=== PATIENT | male | born 1990 | race Caucasian/White ===

== ENCOUNTER 2019-10-18 18:56 | Inpatient (IN) | payer BC ==
[~2019-10-18] VITALS: Ht 177.8 cm; Wt 195.2 kg
[~2019-10-18 18:56] MED LIST: FURO40TA4 PO; LEVO25TA4 PO; POTA20TA4 PO; SERT100T PO
--- NOTE | 2019-10-18 19:08 | PHYS DOC ---
Past Medical History Past Medical History: Hypertension Past Medical History severe obesity, lymphedema Past Surgical History Gastric sleeve in November of last year by Dr. Schwartz Smoking Status: Current Every Day Smoker Alcohol Use: None Drug Use: None General Adult EDM: Chief Complaint: CHEST PAIN HPI: HPI: Patient is a 29 year old male who presents for evaluation of epigastric and central chest pain. He states it does radiate to his back. Onset about 40 minutes prior to arrival when he was sitting. Patient took Pepto-Bismol with no improvement of symptoms. At the time the pain started he was having some shortness of air and sweats. Patient has chronic lymphedema. Patient is severely obese and had a gastric sleeve in November of last year. Patient used to weigh over 600 pounds. Review of Systems: Review of Systems: Constitutional: Denies fever or chills. [] Eyes: Denies change in visual acuity. [] HENT: Denies nasal congestion or sore throat. [] Respiratory: Denies cough has mild shortness of breath. [] Cardiovascular: has chest pain and edema. [] GI: upper abdominal pain with nausea, no vomiting, bloody stools or diarrhea. [] : Denies dysuria. [] Musculoskeletal: has upper back pain or joint pain. [] Integument: Denies rash. [] Neurologic: Denies headache, focal weakness or sensory changes. [] Endocrine: Denies polyuria or polydipsia. [] Lymphatic: Denies swollen glands. [] Psychiatric: Denies depression or anxiety. [] Heart Score: Risk Factors: Risk Factors: DM, Current or recent (<one month) smoker, HTN, HLP, family history of CAD, obesity. Risk Scores: Score 0 - 3: 2.5% MACE over next 6 weeks - Discharge Home Score 4 - 6: 20.3% MACE over next 6 weeks - Admit for Clinical Observation Score 7 - 10: 72.7% MACE over next 6 weeks - Early Invasive Strategies Physical Exam: PE: Constitutional: Well developed, well nourished, moderate distress, non-toxic appearance. [] HENT: Normocephalic, atraumatic, bilateral external ears normal, oropharynx mo ist, no oral exudates, nose normal. [] Eyes: PERRL, EOMI, conjunctiva normal, no discharge. [] Neck: Normal range of motion, no tenderness, supple, no stridor. [] Cardiovascular:Heart rate regular rhythm, no murmur [] Lungs & Thorax: Bilateral breath sounds clear to auscultation [] Abdomen: Bowel sounds diminished, soft, no tenderness, no masses, no pulsatile masses. [] Skin: Warm, dry, no erythema, no rash. [] Back: No tenderness, no CVA tenderness. [] Extremities: No tenderness, no cyanosis, no clubbing, ROM intact, chronic significant lymphedema [] Neurologic: Alert and oriented X 3, normal motor function, normal sensory function, no focal deficits noted. [] Psychologic: Affect normal, judgement normal, mood normal. [] Current Patient Data: Labs: Laboratory Tests Test 10/18/19 19:10 10/18/19 21:30 White Blood Count 11.5 x10^3/uL Red Blood Count 4.61 x10^6/uL Hemoglobin 14.2 g/dL Hematocrit 41.5 % Mean Corpuscular Volume 90 fL Mean Corpuscular Hemoglobin 31 pg Mean Corpuscular Hemoglobin Concent 34 g/dL Red Cell Distribution Width 13.2 % Platelet Count 280 x10^3/uL Neutrophils (%) (Auto) 52 % Lymphocytes (%) (Auto) 39 % Monocytes (%) (Auto) 6 % Eosinophils (%) (Auto) 2 % Basophils (%) (Auto) 1 % Neutrophils # (Auto) 6.0 x10^3/uL Lymphocytes # (Auto) 4.5 x10^3/uL Monocytes # (Auto) 0.7 x10^3/uL Eosinophils # (Auto) 0.2 x10^3/uL Basophils # (Auto) 0.1 x10^3/uL Sodium Level 142 mmol/L Potassium Level 4.0 mmol/L Chloride Level 106 mmol/L Carbon Dioxide Level 26 mmol/L Anion Gap 10 Blood Urea Nitrogen 17 mg/dL Creatinine 0.7 mg/dL Estimated GFR (Cockcroft-Gault) 131.5 BUN/Creatinine Ratio 24 Glucose Level 105 mg/dL Calcium Level 9.2 mg/dL Total Bilirubin 0.4 mg/dL Aspartate Amino Transf (AST/SGOT) 28 U/L Alanine Aminotransferase (ALT/SGPT) 29 U/L Alkaline Phosphatase 52 U/L Troponin I Quantitative < 0.017 ng/mL ZG-[id number]-[id number]-Type Natriuretic Peptide 123 pg/mL Total Protein 6.6 g/dL Albumin 3.9 g/dL Albumin/Globulin Ratio 1.4 Lipase 4920 U/L Urine Collection Type Unknown Urine Color Yellow Urine Clarity Clear Urine pH 5.5 Urine Specific [place] >=1.030 Urine Protein Negative mg/dL Urine Glucose (UA) Negative mg/dL Urine Ketones (Stick) Negative mg/dL Urine Blood Negative Urine Nitrite Negative Urine Bilirubin Small Urine Urobilinogen Dipstick 1.0 mg/dL Urine Leukocyte Esterase Negative Urine RBC 0 /HPF Urine WBC 0 /HPF Urine Squamous Epithelial Cells Mod /LPF Urine Bacteria 0 /HPF Urine Mucus Marked /LPF Current Medications Medications (Trade) Dose Ordered Sig/Justina Route PRN Reason Start Time Stop Time Status Last Admin Dose Admin Famotidine (Pepcid Vial) 20 mg 1X ONCE IVP 10/18/19 19:15 10/18/19 19:35 DC 10/18/19 19:15 Iohexol (Omnipaque 300 Mg/ml) 75 ml 1X ONCE IV 10/18/19 20:30 10/18/19 20:31 DC 10/18/19 20:30 Iohexol (Omnipaque 240 Mg/ml) 30 ml 1X ONCE PO 10/18/19 20:30 10/18/19 20:31 DC 10/18/19 20:52 EKG: EKG: Sinus bradycardia rate 48, otherwise unremarkable EKG, not STEMI, read at 1908 [] Radiology/Procedures: Radiology/Procedures: [facility] [address] [place] [address] IMAGING REPORT Signed PATIENT: SILVESTRE MARK ACCOUNT: [id number] : 1990 LOCATION: ER AGE: 29 SEX: M EXAM STATUS: REG ER ORD. PHYSICIAN: AMY CAPELLAN DO REASON: CHEST PAIN, abd pain, hx gastric sleeve, oral and IV contrast please PROCEDURE: CT CHEST ABD PELVIS W/CONTRAST CT scan of the chest, abdomen and pelvis with contrast 10/18/2019 CLINICAL HISTORY: Chest and abdominal pain. TECHNIQUE: After the oral and intravenous administration of contrast, contiguous, 5 mm axial sections were obtained through the chest, abdomen and pelvis. 100 cc of Omnipaque 300 were administered intravenously during this examination. One or more of the following individualized dose reduction techniques were utilized for this study: 1. Automated exposure control. 2. Adjustment of the mA and/or kV according to patient size. 3. Use of iterative reconstruction technique. FINDINGS: Comparison is made to a portable chest radiograph performed earlier today. The heart is borderline enlarged. The thoracic aorta tapers normally. No hilar or mediastinal lymphadenopathy is noted. Minimal dependent subsegmental atelectasis is seen involving both lungs. No area of consolidation is seen. No pneumothorax or pleural effusion is noted. The liver parenchyma has a decreased attenuation consistent with fatty infiltration. The liver is mildly enlarged measuring 21 cm in length. The spleen is mildly enlarged measuring 13.3 cm in length. The pancreas, adrenal glands and kidneys are within normal limits. The abdominal aorta tapers normally. The gallbladder is well-distended. Air and stool are seen throughout the colon. There is no evidence of bowel obstruction. The appendix is well-visualized and is within normal limits. Postsurgical changes are seen involving the stomach. Images through the pelvis demonstrate the urinary bladder distended with urine. Moderate amount stool is seen within the rectum and sigmoid colon. No free fluid is seen. Minimal S-shaped curvature of the thoracolumbar spine is noted. Degenerative changes are seen involving the thoracic and mid and lower lumbar spine along with both hips. IMPRESSION: No acute abnormality is seen. Electronically signed by: Andrew Antoine MD (10/18/2019 9:30 PM) [id number] DICTATED and SIGNED BY: ANDREW ANTOINE MD DATE: 10/18/192129 [] Impression: [facility] [address] [place] [address] IMAGING REPORT Signed PATIENT: SILVESTRE MARK ACCOUNT: [id number] : 1990 LOCATION: ER AGE: 29 SEX: M EXAM STATUS: REG ER ORD. PHYSICIAN: AMY CAPELLAN DO REASON: chest pain PROCEDURE: PORTABLE CHEST 1V EXAM: Chest, single view. HISTORY: Chest pain. COMPARISON: None. FINDINGS: A frontal view of the chest is obtained. There is no infiltrate, pleural effusion or pneumothorax. The heart is normal in size. IMPRESSION: No acute pulmonary finding. Electronically signed by: Iva Meza MD (10/18/2019 7:48 PM) [facility] DICTATED and SIGNED BY: IVA MEZA MD DATE: 10/18/191947 Course & Med Decision Making: Course & Med Decision Making Pertinent Labs and Imaging studies reviewed. (See chart for details) 2019 patient reassessed and pain is better controlled at this time. Patient has a grossly elevated lipase and will require admission to the hospital. In the meantime CT scan chest abdomen pelvis is pending for any other potential acute surgical diagnosis tonight [] Dragon Disclaimer: Dragon Disclaimer: This electronic medical record was generated, in whole or in part, using a voice recognition dictation system. 2204 patient will be admitted for stabilization. The etiology of his pancreatitis is unclear so patient will need further diagnostic testing. CT scan abdomen pelvis was stable and there was no acute findings regarding his gastric sleeve. I am concerned about other etiology causing this condition including gallstone pancreatitis. Patient will be made to the hospital to the hospitalist service. Dr. Coles is now on duty. Morning sonogram ordered and patient is to remain n.p.o. Departure Departure Impression: Primary Impression: Pancreatitis Qualified Codes: K85.00 - Idiopathic acute pancreatitis without necrosis or infection Additional Impression: History of gastric surgery Disposition: ADMITTED INPATIENT Admitting Physician: RACHEL Condition: STABLE Referrals: MAINE RUIZ APRN (PCP) Justicifation of Admission Dx: Justifications for Admission: Justification of Admission Dx: Yes Comments: pancreatitis AMY CAPELLAN DO Oct 18, 2019 19:08
[2019-10-18] MEDS ORDERED: FAMOTIDINE 20 MG/2 ML VIAL IVP ONE (19:15)
[2019-10-18 19:20] LABS: BASO # 0.1 x10^3/uL (0.0-0.2); BASO % 1 % (0-3); EOS # 0.2 x10^3/uL (0.0-0.7); EOS % 2 % (0-3); HEMATOCRIT 41.5 % (39.0-53.0); HEMOGLOBIN 14.2 g/dL (13.0-17.5); LYMPH # 4.5 x10^3/uL (1.0-4.8); LYMPH % 39 % (24-48); MEAN CORPUSCULAR HEMOGLOBIN 31 pg (25-35); MEAN CORPUSCULAR HGB CONC 34 g/dL (31-37); MEAN CORPUSCULAR VOLUME 90 fL (79-100); MONO # 0.7 x10^3/uL (0.0-1.1); MONO % 6 % (0-9); NEUT % 52 % (31-73); PLATELET COUNT 280 x10^3/uL (140-400); RED BLOOD COUNT 4.61 x10^6/uL (4.30-5.70); RED CELL DISTRIBUTION WIDTH 13.2 % (11.5-14.5); WHITE BLOOD COUNT 11.5 x10^3/uL (4.0-11.0)
[2019-10-18 19:29] LABS: CALCIUM 9.2 mg/dL (8.5-10.1); CREATININE 0.7 mg/dL (0.7-1.3); GFR 131.5
[2019-10-18 19:36] LABS: ALBUMIN 3.9 g/dL (3.4-5.0); ALBUMIN/GLOBULIN RATIO 1.4 (1.0-1.7); TOTAL BILIRUBIN 0.4 mg/dL (0.2-1.0); TOTAL PROTEIN 6.6 g/dL (6.4-8.2)
--- NOTE | 2019-10-18 19:51 | RAD ---
EXAM: Chest, single view. HISTORY: Chest pain. COMPARISON: None. FINDINGS: A frontal view of the chest is obtained. There is no infiltrate, pleural effusion or pneumothorax. The heart is normal in size. IMPRESSION: No acute pulmonary finding. Electronically signed by: Corutney Arauz MD (10/18/2019 7:48 PM) [facility]
[2019-10-18] MEDS ORDERED: IOHEXOL 300 MG/ML 100ML VIAL. IV ONE (20:30)
[2019-10-18] MEDS ORDERED: IOHEXOL 240 MG/ML 50ML VIAL. PO ONE (20:30)
--- NOTE | 2019-10-18 21:33 | RAD ---
CT scan of the chest, abdomen and pelvis with contrast 10/18/2019 CLINICAL HISTORY: Chest and abdominal pain. TECHNIQUE: After the oral and intravenous administration of contrast, contiguous, 5 mm axial sections were obtained through the chest, abdomen and pelvis. 100 cc of Omnipaque 300 were administered intravenously during this examination. One or more of the following individualized dose reduction techniques were utilized for this study: 1. Automated exposure control. 2. Adjustment of the mA and/or kV according to patient size. 3. Use of iterative reconstruction technique. FINDINGS: Comparison is made to a portable chest radiograph performed earlier today. The heart is borderline enlarged. The thoracic aorta tapers normally. No hilar or mediastinal lymphadenopathy is noted. Minimal dependent subsegmental atelectasis is seen involving both lungs. No area of consolidation is seen. No pneumothorax or pleural effusion is noted. The liver parenchyma has a decreased attenuation consistent with fatty infiltration. The liver is mildly enlarged measuring 21 cm in length. The spleen is mildly enlarged measuring 13.3 cm in length. The pancreas, adrenal glands and kidneys are within normal limits. The abdominal aorta tapers normally. The gallbladder is well-distended. Air and stool are seen throughout the colon. There is no evidence of bowel obstruction. The appendix is well-visualized and is within normal limits. Postsurgical changes are seen involving the stomach. Images through the pelvis demonstrate the urinary bladder distended with urine. Moderate amount stool is seen within the rectum and sigmoid colon. No free fluid is seen. Minimal S-shaped curvature of the thoracolumbar spine is noted. Degenerative changes are seen involving the thoracic and mid and lower lumbar spine along with both hips. IMPRESSION: No acute abnormality is seen. Electronically signed by: Andrew Antoine MD (10/18/2019 9:30 PM) [id number]
[2019-10-18 21:38] LABS: BILIRUBIN,URINE SMALL (NEG); CLARITY,URINE CLEAR; COLOR,URINE YELLOW; NITRITE,URINE NEGATIVE (NEG); PH,URINE 5.5 (<5.0-8.0); PROTEIN,URINE NEGATIVE (NEG-TRACE)
[2019-10-18 21:48] LABS: SQUAMOUS EPITHELIAL CELL,UR MOD /LPF
[2019-10-18 21:49] LABS: BACTERIA,URINE 0 /HPF (0-FEW); RBC,URINE 0 /HPF (0-2); WBC,URINE 0 /HPF (0-4)
[2019-10-18] MEDS ORDERED: fentaNYL PF VIAL 100 MCG/2 ML VIAL IV PRN (23:00)
[2019-10-18] MEDS ORDERED: ONDANSETRON PF 4 MG/2 ML VIAL. IV PRN (23:00)
[2019-10-18 23:35] VITALS: BP 121/57
[2019-10-19 03:30] VITALS: BP 123/73
[2019-10-19 06:50] VITALS: BP 126/55
--- NOTE | 2019-10-19 07:53 | EKG ---
[facility] [address] [place] [address] Test Date: 2019-10-18 Test Time: 19:01:41 Pat Name: SILVESTRE MARK Department: Room: Gender: M [employer]: : 1990 Requested By: AMY CAPELLAN Order Number: [id number] Reading MD: Measurements Intervals [place] Rate: 48 P: 45 ME: 164 QRS: 46 QRSD: 98 T: 31 QT: 450 QTc: 402 Interpretive Statements SINUS BRADYCARDIA OTHERWISE NORMAL ECG RI6.01 No previous ECG available for comparison
--- NOTE | 2019-10-19 08:59 | NUR ---
SW following. Discussed with RN, pt from home, NPO, room air, bowel rest. SW will continue to follow.
--- NOTE | 2019-10-19 09:01 | PDOC2 ---
CONSULT Date of Consult Date of Consult DATE: 10/19/19 TIME: 08:57 Reason for Consult Reason for Consult: Abdominal pain pancreatitis Referring Physician Referring Physician: Gurwinder Identification/Chief Complaint Chief Complaint Abdominal pain Source Source: Chart review, Patient History of Present Illness Reason for Visit: 29-year-old male status post gastric sleeve procedure for morbid obesity developed severe abdominal epigastric pain last evening which lasted for approximately 2 hours he went to the emergency department to be evaluated CT scan was done which did not really show anything abnormal in his pancreas but is labs showed elevated lipase he was admitted to the hospital this morning he states he is not having any pain no nausea no vomiting states he is never had a problem like this in the past Past Medical History Cardiovascular: No pertinent hx Pulmonary: No pertinent hx GI: No pertinent hx Heme/Onc: No pertinent hx Hepatobiliary: No pertinent hx Psych: No pertinent hx Rheumatologic: No pertinent hx Infectious disease: No pertinent hx ENT: No pertinent hx Endocrine: Diabetes Dermatology: No pertinent hx Past Surgical History Past Surgical History: Other (Gastric sleeve procedure) Family History Family History: No Significant Social History No ALCOHOL: none Drugs: None Current Problem List Problem List Problems Medical Problems: (1) Pancreatitis Status: Acute Current Medications Current Medications Current Medications Famotidine (Pepcid Vial) 20 mg 1X ONCE IVP Last administered on 10/18/19at 19:15; Start 10/18/19 at 19:15; Stop 10/18/19 at 19:35; Status DC Iohexol (Omnipaque 300 Mg/ml) 75 ml 1X ONCE IV Last administered on 10/18/19at 20:30; Start 10/18/19 at 20:30; Stop 10/18/19 at 20:31; Status DC Iohexol (Omnipaque 240 Mg/ml) 30 ml 1X ONCE PO Last administered on 10/18/19at 20:52; Start 10/18/19 at 20:30; Stop 10/18/19 at 20:31; Status DC Ondansetron HCl (Zofran) 4 mg PRN Q8HRS PRN IV NAUSEA/VOMITING 1ST CHOICE; Start 10/18/19 at 23:00; Stop 10/19/19 at 22:59 Fentanyl Citrate (Fentanyl 2ml Vial) 50 mcg PRN Q1HR PRN IV SEVERE PAIN 7-10; Start 10/18/19 at 23:00; Stop 10/19/19 at 22:59 Active Scripts Active Reported Levothyroxine Sodium 25 Mcg Tablet 25 Mcg PO DAILYAC Furosemide 40 Mg Tablet 60 Mg PO DAILY Potassium Chloride 20 Meq Tablet.er 20 Meq PO DAILY Zoloft (Sertraline Hcl) 100 Mg Tablet 100 Mg PO DAILY Allergies Allergies: Coded Allergies: latex (Verified Allergy, Intermediate, 10/19/19) ROS Gastrointestinal: Yes Abdominal Pain Physical Exam General: Alert, Oriented X3, Cooperative, No acute distress HEENT: Atraumatic Lungs: Clear to auscultation, Normal air movement Heart: Regular rate, No murmurs Abdomen: Normal bowel sounds, Soft, No tenderness Extremities: No edema Skin: No significant lesion Neuro: Normal speech Psych/Mental Status: Mental status NL Vitals VITALS Vital Signs Date Time Temp Pulse Resp B/P (MAP) Pulse Ox O2 Delivery O2 Flow Rate FiO2 10/19/19 06:50 97.7 52 18 126/55 (78) 96 Room Air 97.7 Labs Labs Laboratory Tests Test 10/18/19 19:10 10/18/19 21:30 White Blood Count 11.5 x10^3/uL (4.0-11.0) Red Blood Count 4.61 x10^6/uL (4.30-5.70) Hemoglobin 14.2 g/dL (13.0-17.5) Hematocrit 41.5 % (39.0-53.0) Mean Corpuscular Volume 90 fL (79-100) Mean Corpuscular Hemoglobin 31 pg (25-35) Mean Corpuscular Hemoglobin Concent 34 g/dL (31-37) Red Cell Distribution Width 13.2 % (11.5-14.5) Platelet Count 280 x10^3/uL (140-400) Neutrophils (%) (Auto) 52 % (31-73) Lymphocytes (%) (Auto) 39 % (24-48) Monocytes (%) (Auto) 6 % (0-9) Eosinophils (%) (Auto) 2 % (0-3) Basophils (%) (Auto) 1 % (0-3) Neutrophils # (Auto) 6.0 x10^3/uL (1.8-7.7) Lymphocytes # (Auto) 4.5 x10^3/uL (1.0-4.8) Monocytes # (Auto) 0.7 x10^3/uL (0.0-1.1) Eosinophils # (Auto) 0.2 x10^3/uL (0.0-0.7) Basophils # (Auto) 0.1 x10^3/uL (0.0-0.2) Sodium Level 142 mmol/L (136-145) Potassium Level 4.0 mmol/L (3.5-5.1) Chloride Level 106 mmol/L (98-107) Carbon Dioxide Level 26 mmol/L (21-32) Anion Gap 10 (6-14) Blood Urea Nitrogen 17 mg/dL (8-26) Creatinine 0.7 mg/dL (0.7-1.3) Estimated GFR (Cockcroft-Gault) 131.5 BUN/Creatinine Ratio 24 (6-20) Glucose Level 105 mg/dL (70-99) Calcium Level 9.2 mg/dL (8.5-10.1) Total Bilirubin 0.4 mg/dL (0.2-1.0) Aspartate Amino Transf (AST/SGOT) 28 U/L (15-37) Alanine Aminotransferase (ALT/SGPT) 29 U/L (16-63) Alkaline Phosphatase 52 U/L (46-116) Troponin I Quantitative < 0.017 ng/mL (0.000-0.055) DI-Efc-O-Type Natriuretic Peptide 123 pg/mL (0-124) Total Protein 6.6 g/dL (6.4-8.2) Albumin 3.9 g/dL (3.4-5.0) Albumin/Globulin Ratio 1.4 (1.0-1.7) Lipase 4920 U/L (73-393) Urine Collection Type Unknown Urine Color Yellow Urine Clarity Clear Urine pH 5.5 (<5.0-8.0) Urine Specific [place] >=1.030 (1.000-1.030) Urine Protein Negative mg/dL (NEG-TRACE) Urine Glucose (UA) Negative mg/dL (NEG) Urine Ketones (Stick) Negative mg/dL (NEG) Urine Blood Negative (NEG) Urine Nitrite Negative (NEG) Urine Bilirubin Small (NEG) Urine Urobilinogen Dipstick 1.0 mg/dL (0.2 mg/dL) Urine Leukocyte Esterase Negative (NEG) Urine RBC 0 /HPF (0-2) Urine WBC 0 /HPF (0-4) Urine Squamous Epithelial Cells Mod /LPF Urine Bacteria 0 /HPF (0-FEW) Urine Mucus Marked /LPF Laboratory Tests Test 10/18/19 19:10 10/18/19 21:30 White Blood Count 11.5 x10^3/uL (4.0-11.0) Red Blood Count 4.61 x10^6/uL (4.30-5.70) Hemoglobin 14.2 g/dL (13.0-17.5) Hematocrit 41.5 % (39.0-53.0) Mean Corpuscular Volume 90 fL (79-100) Mean Corpuscular Hemoglobin 31 pg (25-35) Mean Corpuscular Hemoglobin Concent 34 g/dL (31-37) Red Cell Distribution Width 13.2 % (11.5-14.5) Platelet Count 280 x10^3/uL (140-400) Neutrophils (%) (Auto) 52 % (31-73) Lymphocytes (%) (Auto) 39 % (24-48) Monocytes (%) (Auto) 6 % (0-9) Eosinophils (%) (Auto) 2 % (0-3) Basophils (%) (Auto) 1 % (0-3) Neutrophils # (Auto) 6.0 x10^3/uL (1.8-7.7) Lymphocytes # (Auto) 4.5 x10^3/uL (1.0-4.8) Monocytes # (Auto) 0.7 x10^3/uL (0.0-1.1) Eosinophils # (Auto) 0.2 x10^3/uL (0.0-0.7) Basophils # (Auto) 0.1 x10^3/uL (0.0-0.2) Sodium Level 142 mmol/L (136-145) Potassium Level 4.0 mmol/L (3.5-5.1) Chloride Level 106 mmol/L (98-107) Carbon Dioxide Level 26 mmol/L (21-32) Anion Gap 10 (6-14) Blood Urea Nitrogen 17 mg/dL (8-26) Creatinine 0.7 mg/dL (0.7-1.3) Estimated GFR (Cockcroft-Gault) 131.5 BUN/Creatinine Ratio 24 (6-20) Glucose Level 105 mg/dL (70-99) Calcium Level 9.2 mg/dL (8.5-10.1) Total Bilirubin 0.4 mg/dL (0.2-1.0) Aspartate Amino Transf (AST/SGOT) 28 U/L (15-37) Alanine Aminotransferase (ALT/SGPT) 29 U/L (16-63) Alkaline Phosphatase 52 U/L (46-116) Troponin I Quantitative < 0.017 ng/mL (0.000-0.055) DQ-Cve-H-Type Natriuretic Peptide 123 pg/mL (0-124) Total Protein 6.6 g/dL (6.4-8.2) Albumin 3.9 g/dL (3.4-5.0) Albumin/Globulin Ratio 1.4 (1.0-1.7) Lipase 4920 U/L (73-393) Urine Collection Type Unknown Urine Color Yellow Urine Clarity Clear Urine pH 5.5 (<5.0-8.0) Urine Specific [place] >=1.030 (1.000-1.030) Urine Protein Negative mg/dL (NEG-TRACE) Urine Glucose (UA) Negative mg/dL (NEG) Urine Ketones (Stick) Negative mg/dL (NEG) Urine Blood Negative (NEG) Urine Nitrite Negative (NEG) Urine Bilirubin Small (NEG) Urine Urobilinogen Dipstick 1.0 mg/dL (0.2 mg/dL) Urine Leukocyte Esterase Negative (NEG) Urine RBC 0 /HPF (0-2) Urine WBC 0 /HPF (0-4) Urine Squamous Epithelial Cells Mod /LPF Urine Bacteria 0 /HPF (0-FEW) Urine Mucus Marked /LPF Images Images CT scan as in the history of present illness Assessment/Plan Assessment/Plan Pancreatitis patient does not take alcohol no use gallstones seen on CT scan possibly related to hypertriglyceridemia would recommend checking his triglycer marcia and cholesterol levels No surgical intervention planned SCOTTY ARGUELLES MD Oct 19, 2019 09:01
--- NOTE | 2019-10-19 09:05 | PDOC2 ---
CONSULT Date of Consult Date of Consult DATE: 10/19/19 TIME: 08:58 Reason for Consult Reason for Consult: pancreatitis Referring Physician Referring Physician: ER Identification/Chief Complaint Chief Complaint abdominal pain Source Source: Chart review, Patient History of Present Illness Reason for Visit: Acute onset of chest pain with radiation to scapula. Seen in ER treated with pepcid, improved and has not returned. No similar symptoms in past. Hx of gastric sleeve and has lost over 200 lbs Past Medical History Cardiovascular: HTN Psych: Depression Endocrine: Hypothyroidism Past Surgical History Past Surgical History: Other (gastric sleeve) Family History Family History: Other (noncontributory to current illness ) Social History No ALCOHOL: none Drugs: None Lives: Alone Current Problem List Problem List Problems Medical Problems: (1) Pancreatitis Status: Acute Current Medications Current Medications Current Medications Famotidine (Pepcid Vial) 20 mg 1X ONCE IVP Last administered on 10/18/19at 19:15; Start 10/18/19 at 19:15; Stop 10/18/19 at 19:35; Status DC Iohexol (Omnipaque 300 Mg/ml) 75 ml 1X ONCE IV Last administered on 10/18/19at 20:30; Start 10/18/19 at 20:30; Stop 10/18/19 at 20:31; Status DC Iohexol (Omnipaque 240 Mg/ml) 30 ml 1X ONCE PO Last administered on 10/18/19at 20:52; Start 10/18/19 at 20:30; Stop 10/18/19 at 20:31; Status DC Ondansetron HCl (Zofran) 4 mg PRN Q8HRS PRN IV NAUSEA/VOMITING 1ST CHOICE; Start 10/18/19 at 23:00; Stop 10/19/19 at 22:59 Fentanyl Citrate (Fentanyl 2ml Vial) 50 mcg PRN Q1HR PRN IV SEVERE PAIN 7-10; Start 10/18/19 at 23:00; Stop 10/19/19 at 22:59 Active Scripts Active Reported Levothyroxine Sodium 25 Mcg Tablet 25 Mcg PO DAILYAC Furosemide 40 Mg Tablet 60 Mg PO DAILY Potassium Chloride 20 Meq Tablet.er 20 Meq PO DAILY Zoloft (Sertraline Hcl) 100 Mg Tablet 100 Mg PO DAILY Allergies Allergies: Coded Allergies: latex (Verified Allergy, Intermediate, 10/19/19) ROS General: YES: Chills, Other (sweats) PSYCHOLOGICAL ROS: No: Anxiety, Depression Eyes: No Blurry vision, No Double vision HEENT: No: Heacaches, Sore Throat Hematological and Lymphatic: No: Bleeding Problems, Blood Clots Respiratory: No: Cough, Shortness of breath Cardiovascular: No Palpitations, No Orthopnea Gastrointestinal: Yes Nausea; No Diarrhea, No Constipation Genitourinary: No Dysuria, No Hematuria Musculoskeletal: No Joint Pain, No Muscle Pain Neurological: No Impaired Coord/balance, No Numbness/Tingling Skin: No Pruritus, No Rash Physical Exam General: Alert, Oriented X3, Cooperative HEENT: Atraumatic, PERRLA Lungs: Clear to auscultation, Normal air movement Heart: Regular rate, Normal S1, Normal S2 Abdomen: Soft, No tenderness, Other (obese abdomen) Extremities: No clubbing, No cyanosis Skin: No rashes, No breakdown Neuro: Normal gait, Normal speech Psych/Mental Status: Mental status NL, Mood NL MUSCULOSKELETAL: No joint tenderness, No deformity Vitals VITALS Vital Signs Date Time Temp Pulse Resp B/P (MAP) Pulse Ox O2 Delivery O2 Flow Rate FiO2 10/19/19 06:50 97.7 52 18 126/55 (78) 96 Room Air 97.7 Labs Labs Laboratory Tests Test 10/18/19 19:10 10/18/19 21:30 White Blood Count 11.5 x10^3/uL (4.0-11.0) Red Blood Count 4.61 x10^6/uL (4.30-5.70) Hemoglobin 14.2 g/dL (13.0-17.5) Hematocrit 41.5 % (39.0-53.0) Mean Corpuscular Volume 90 fL (79-100) Mean Corpuscular Hemoglobin 31 pg (25-35) Mean Corpuscular Hemoglobin Concent 34 g/dL (31-37) Red Cell Distribution Width 13.2 % (11.5-14.5) Platelet Count 280 x10^3/uL (140-400) Neutrophils (%) (Auto) 52 % (31-73) Lymphocytes (%) (Auto) 39 % (24-48) Monocytes (%) (Auto) 6 % (0-9) Eosinophils (%) (Auto) 2 % (0-3) Basophils (%) (Auto) 1 % (0-3) Neutrophils # (Auto) 6.0 x10^3/uL (1.8-7.7) Lymphocytes # (Auto) 4.5 x10^3/uL (1.0-4.8) Monocytes # (Auto) 0.7 x10^3/uL (0.0-1.1) Eosinophils # (Auto) 0.2 x10^3/uL (0.0-0.7) Basophils # (Auto) 0.1 x10^3/uL (0.0-0.2) Sodium Level 142 mmol/L (136-145) Potassium Level 4.0 mmol/L (3.5-5.1) Chloride Level 106 mmol/L (98-107) Carbon Dioxide Level 26 mmol/L (21-32) Anion Gap 10 (6-14) Blood Urea Nitrogen 17 mg/dL (8-26) Creatinine 0.7 mg/dL (0.7-1.3) Estimated GFR (Cockcroft-Gault) 131.5 BUN/Creatinine Ratio 24 (6-20) Glucose Level 105 mg/dL (70-99) Calcium Level 9.2 mg/dL (8.5-10.1) Total Bilirubin 0.4 mg/dL (0.2-1.0) Aspartate Amino Transf (AST/SGOT) 28 U/L (15-37) Alanine Aminotransferase (ALT/SGPT) 29 U/L (16-63) Alkaline Phosphatase 52 U/L (46-116) Troponin I Quantitative < 0.017 ng/mL (0.000-0.055) QW-Evz-I-Type Natriuretic Peptide 123 pg/mL (0-124) Total Protein 6.6 g/dL (6.4-8.2) Albumin 3.9 g/dL (3.4-5.0) Albumin/Globulin Ratio 1.4 (1.0-1.7) Lipase 4920 U/L (73-393) Urine Collection Type Unknown Urine Color Yellow Urine Clarity Clear Urine pH 5.5 (<5.0-8.0) Urine Specific [place] >=1.030 (1.000-1.030) Urine Protein Negative mg/dL (NEG-TRACE) Urine Glucose (UA) Negative mg/dL (NEG) Urine Ketones (Stick) Negative mg/dL (NEG) Urine Blood Negative (NEG) Urine Nitrite Negative (NEG) Urine Bilirubin Small (NEG) Urine Urobilinogen Dipstick 1.0 mg/dL (0.2 mg/dL) Urine Leukocyte Esterase Negative (NEG) Urine RBC 0 /HPF (0-2) Urine WBC 0 /HPF (0-4) Urine Squamous Epithelial Cells Mod /LPF Urine Bacteria 0 /HPF (0-FEW) Urine Mucus Marked /LPF Laboratory Tests Test 10/18/19 19:10 10/18/19 21:30 White Blood Count 11.5 x10^3/uL (4.0-11.0) Red Blood Count 4.61 x10^6/uL (4.30-5.70) Hemoglobin 14.2 g/dL (13.0-17.5) Hematocrit 41.5 % (39.0-53.0) Mean Corpuscular Volume 90 fL (79-100) Mean Corpuscular Hemoglobin 31 pg (25-35) Mean Corpuscular Hemoglobin Concent 34 g/dL (31-37) Red Cell Distribution Width 13.2 % (11.5-14.5) Platelet Count 280 x10^3/uL (140-400) Neutrophils (%) (Auto) 52 % (31-73) Lymphocytes (%) (Auto) 39 % (24-48) Monocytes (%) (Auto) 6 % (0-9) Eosinophils (%) (Auto) 2 % (0-3) Basophils (%) (Auto) 1 % (0-3) Neutrophils # (Auto) 6.0 x10^3/uL (1.8-7.7) Lymphocytes # (Auto) 4.5 x10^3/uL (1.0-4.8) Monocytes # (Auto) 0.7 x10^3/uL (0.0-1.1) Eosinophils # (Auto) 0.2 x10^3/uL (0.0-0.7) Basophils # (Auto) 0.1 x10^3/uL (0.0-0.2) Sodium Level 142 mmol/L (136-145) Potassium Level 4.0 mmol/L (3.5-5.1) Chloride Level 106 mmol/L (98-107) Carbon Dioxide Level 26 mmol/L (21-32) Anion Gap 10 (6-14) Blood Urea Nitrogen 17 mg/dL (8-26) Creatinine 0.7 mg/dL (0.7-1.3) Estimated GFR (Cockcroft-Gault) 131.5 BUN/Creatinine Ratio 24 (6-20) Glucose Level 105 mg/dL (70-99) Calcium Level 9.2 mg/dL (8.5-10.1) Total Bilirubin 0.4 mg/dL (0.2-1.0) Aspartate Amino Transf (AST/SGOT) 28 U/L (15-37) Alanine Aminotransferase (ALT/SGPT) 29 U/L (16-63) Alkaline Phosphatase 52 U/L (46-116) Troponin I Quantitative < 0.017 ng/mL (0.000-0.055) XC-Oxl-V-Type Natriuretic Peptide 123 pg/mL (0-124) Total Protein 6.6 g/dL (6.4-8.2) Albumin 3.9 g/dL (3.4-5.0) Albumin/Globulin Ratio 1.4 (1.0-1.7) Lipase 4920 U/L (73-393) Urine Collection Type Unknown Urine Color Yellow Urine Clarity Clear Urine pH 5.5 (<5.0-8.0) Urine Specific [place] >=1.030 (1.000-1.030) Urine Protein Negative mg/dL (NEG-TRACE) Urine Glucose (UA) Negative mg/dL (NEG) Urine Ketones (Stick) Negative mg/dL (NEG) Urine Blood Negative (NEG) Urine Nitrite Negative (NEG) Urine Bilirubin Small (NEG) Urine Urobilinogen Dipstick 1.0 mg/dL (0.2 mg/dL) Urine Leukocyte Esterase Negative (NEG) Urine RBC 0 /HPF (0-2) Urine WBC 0 /HPF (0-4) Urine Squamous Epithelial Cells Mod /LPF Urine Bacteria 0 /HPF (0-FEW) Urine Mucus Marked /LPF Assessment/Plan Assessment/Plan pancreatitis US pending check triglycerides Obesity BMI 59.7 bowel rest, hydration, allow resolution of pancreatitis imaging with cholelithiasis--would rec FU with Dr Leach that performed his sleeve for lap ramona once pancreatitis resolved triglycerides normal MONICA CORDOVA DIRECTOR OF SURGERY Oct 19, 2019 09:05
--- NOTE | 2019-10-19 09:59 | RAD ---
ABDOMEN LTD INDICATION: Reason: PANCREATITIS / Spl. Instructions: / History: COMPARISON: CT 10/18/2019. TECHNIQUE: Limited transverse and longitudinal grayscale images of the right upper quadrant with color and pulsed doppler utilized as appropriate. FINDINGS: The liver demonstrates increased echogenicity without focal lesions. The liver measures 19.7 cm. The portal vein is patent with normal antegrade flow. Cholelithiasis. No wall thickening or pericholecystic fluid. Negative sonographic Trevino's sign. No intrahepatic or extrahepatic biliary dilatation. The common bile duct measures 0.4 cm. Tail of the pancreas is obscured. The visualized portions of the pancreas demonstrate normal echogenicity without focal lesions. The right kidney has normal echogenicity and measures 10.7 cm. No hydronephrosis, shadowing stones or suspicious masses seen. No ascites or fluid collections. The aorta and IVC are normal diameter where visualized. IMPRESSION: 1. Cholelithiasis. No evidence of acute cholecystitis. Normal caliber common bile duct. 2. Hepatomegaly and hepatic steatosis. Electronically signed by: Cade Godoy MD (10/19/2019 9:56 AM) [id number]
--- NOTE | 2019-10-19 10:29 | PDOC1 ---
History and Physical Date of Admission Date of Admission DATE: 10/19/19 TIME: 10:28 Identification/Chief Complaint Chief Complaint SEEN IN ER WITH ABD PAIN, ACUTE PANCREATITIS 29 year old male who presents for evaluation of epigastric and central chest pain. He states it does radiate to his back. Onset about 40 minutes prior to arrival when he was sitting. Patient took Pepto-Bismol with no improvement of symptoms. At the time the pain started he was having some shortness of air and sweats. Patient has chronic lymphedema. Patient is severely obese and had a gastric sleeve in November of last year. Patient used to weigh over 600 pounds. Past Medical History Past Medical History Past Medical History Past Medical History Past Medical History: Hypertension Past Medical History severe obesity, lymphedema Past Surgical History Gastric sleeve in November of last year by Dr. Schwartz Smoking Status: Current Every Day Smoker Alcohol Use: None Drug Use: None fhx copd Cardiovascular: HTN Pulmonary: No pertinent hx GI: No pertinent hx Heme/Onc: No pertinent hx Hepatobiliary: No pertinent hx Psych: Depression Rheumatologic: No pertinent hx Infectious disease: No pertinent hx ENT: No pertinent hx Endocrine: Hypothyroidism Dermatology: No pertinent hx Past Surgical History Past Surgical History: Other (gastric sleeve) Family History Family History: High Cholestrol, Hypertension, Other (noncontributory to current illness ) Social History Smoke: <1 pack per day ALCOHOL: none Drugs: None Current Problem List Problem List Problems Medical Problems: (1) Pancreatitis Status: Acute Current Medications Current Medications Current Medications Famotidine (Pepcid Vial) 20 mg 1X ONCE IVP Last administered on 10/18/19at 19:15; Start 10/18/19 at 19:15; Stop 10/18/19 at 19:35; Status DC Iohexol (Omnipaque 300 Mg/ml) 75 ml 1X ONCE IV Last administered on 10/18/19at 20:30; Start 10/18/19 at 20:30; Stop 10/18/19 at 20:31; Status DC Iohexol (Omnipaque 240 Mg/ml) 30 ml 1X ONCE PO Last administered on 10/18/19at 20:52; Start 10/18/19 at 20:30; Stop 10/18/19 at 20:31; Status DC Ondansetron HCl (Zofran) 4 mg PRN Q8HRS PRN IV NAUSEA/VOMITING 1ST CHOICE; Start 10/18/19 at 23:00; Stop 10/19/19 at 22:59 Fentanyl Citrate (Fentanyl 2ml Vial) 50 mcg PRN Q1HR PRN IV SEVERE PAIN 7-10; Start 10/18/19 at 23:00; Stop 10/19/19 at 22:59 Sodium Chloride 1,000 ml @ 75 mls/hr [id number] IV ; Start 10/19/19 at 10:15 Active Scripts Active Reported Levothyroxine Sodium 25 Mcg Tablet 25 Mcg PO DAILYAC Furosemide 40 Mg Tablet 60 Mg PO DAILY Potassium Chloride 20 Meq Tablet.er 20 Meq PO DAILY Zoloft (Sertraline Hcl) 100 Mg Tablet 100 Mg PO DAILY Allergies Allergies: Coded Allergies: latex (Verified Allergy, Intermediate, 10/19/19) ROS Review of System Constitutional: Denies fever or chills. [] Eyes: Denies change in visual acuity. [] HENT: Denies nasal congestion or sore throat. [] Respiratory: Denies cough has mild shortness of breath. [] Cardiovascular: has chest pain and edema. [] GI: upper abdominal pain with nausea, no vomiting, bloody stools or diarrhea. [] : Denies dysuria. [] Musculoskeletal: has upper back pain or joint pain. [] Integument: Denies rash. [] Neurologic: Denies headache, focal weakness or sensory changes. [] Endocrine: Denies polyuria or polydipsia. [] Lymphatic: Denies swollen glands. [] Psychiatric: Denies depression or anxiety. [] 14 PT ROS OTHERWISE NEG PSYCHOLOGICAL ROS: No: Anxiety, Behavioral Disorder, Concentration difficultie, Decreased libido, Depression, Disorientation, Hallucinations, Hostility, Irritablity, Memory difficulties, Mood Swings, Obsessive thoughts, Physical abuse, Sexual abuse, Sleep disturbances, Suicidal ideation, Other HEENT: No: Heacaches, Visual Changes, Hearing change, Nasal congestion, Nasal discharge, Oral lesions, Sinus pain, Sore Throat, Epistaxis, Sneezing, Snoring, Tinnitus, Vertigo, Vocal changes, Other Hematological and Lymphatic: No: Bleeding Problems, Blood Clots, Blood T ransfusions, Brusing, Night Sweats, Pallor, Swollen Lymph Nodes, Other Cardiovascular: No Chest Pain, No Palpitations, No Orthopnea, No Paroxysmal Noc. Dyspnea, No Edema, No Lt Headedness, No Other Gastrointestinal: Yes Nausea, Yes Abdominal Pain, Yes Other (PAIN NOW RESOLVED) Musculoskeletal: No Gait Disturbance, No Joint Pain, No Joint Stiffness, No Joint Swelling, No Muscle Pain, No Muscular Weakness, No Pain In:, No Swelling In:, No Other Physical Exam Physical Exam Constitutional: Well developed, well nourished, NO distress, non-toxic appearance. [] HENT: Normocephalic, atraumatic, bilateral external ears normal, oropharynx moist, no oral exudates, nose normal. [] Eyes: PERRL, EOMI, conjunctiva normal, no discharge. [] Neck: Normal range of motion, no tenderness, supple, no stridor. [] Cardiovascular:Heart rate regular rhythm, no murmur [] Lungs & Thorax: Bilateral breath sounds clear to auscultation [] Abdomen: Bowel sounds diminished, soft, no tenderness, no masses, no pulsatile masses. [] Skin: Warm, dry, no erythema, no rash. [] Back: No tenderness, no CVA tenderness. [] Extremities: No tenderness, no cyanosis, no clubbing, ROM intact, chronic significant lymphedema [] Neurologic: Alert and oriented X 3, normal motor function, normal sensory fu nction, no focal deficits noted. [] Psychologic: Affect normal, judgment normal, mood normal. [] General: Alert, Oriented X3, Cooperative, No acute distress HEENT: Atraumatic, EOMI, Mucous membr. moist/pink Lungs: Clear to auscultation, Normal air movement Heart: RRR, no gallops, no murmurs Breasts: Not examined Abdomen: Soft Rectal Exam: not examined PELVIC: Examination not indicated Extremities: No cyanosis, Other (LYPHPHEDEMA ) Neuro: Normal speech, Cranial nerves 3-12 NL Psych/Mental Status: Mental status NL, Mood NL Vitals Vitals Vital Signs Date Time Temp Pulse Resp B/P (MAP) Pulse Ox O2 Delivery O2 Flow Rate FiO2 10/19/19 08:00 Room Air 10/19/19 06:50 97.7 52 18 126/55 (78) 96 97.7 Labs Labs Laboratory Tests Test 10/18/19 19:10 10/18/19 21:30 10/19/19 09:20 White Blood Count 11.5 x10^3/uL (4.0-11.0) Red Blood Count 4.61 x10^6/uL (4.30-5.70) Hemoglobin 14.2 g/dL (13.0-17.5) Hematocrit 41.5 % (39.0-53.0) Mean Corpuscular Volume 90 fL (79-100) Mean Corpuscular Hemoglobin 31 pg (25-35) Mean Corpuscular Hemoglobin Concent 34 g/dL (31-37) Red Cell Distribution Width 13.2 % (11.5-14.5) Platelet Count 280 x10^3/uL (140-400) Neutrophils (%) (Auto) 52 % (31-73) Lymphocytes (%) (Auto) 39 % (24-48) Monocytes (%) (Auto) 6 % (0-9) Eosinophils (%) (Auto) 2 % (0-3) Basophils (%) (Auto) 1 % (0-3) Neutrophils # (Auto) 6.0 x10^3/uL (1.8-7.7) Lymphocytes # (Auto) 4.5 x10^3/uL (1.0-4.8) Monocytes # (Auto) 0.7 x10^3/uL (0.0-1.1) Eosinophils # (Auto) 0.2 x10^3/uL (0.0-0.7) Basophils # (Auto) 0.1 x10^3/uL (0.0-0.2) Sodium Level 142 mmol/L (136-145) Potassium Level 4.0 mmol/L (3.5-5.1) Chloride Level 106 mmol/L (98-107) Carbon Dioxide Level 26 mmol/L (21-32) Anion Gap 10 (6-14) Blood Urea Nitrogen 17 mg/dL (8-26) Creatinine 0.7 mg/dL (0.7-1.3) Estimated GFR (Cockcroft-Gault) 131.5 BUN/Creatinine Ratio 24 (6-20) Glucose Level 105 mg/dL (70-99) Calcium Level 9.2 mg/dL (8.5-10.1) Total Bilirubin 0.4 mg/dL (0.2-1.0) Aspartate Amino Transf (AST/SGOT) 28 U/L (15-37) Alanine Aminotransferase (ALT/SGPT) 29 U/L (16-63) Alkaline Phosphatase 52 U/L (46-116) Troponin I Quantitative < 0.017 ng/mL (0.000-0.055) FN-Qlt-M-Type Natriuretic Peptide 123 pg/mL (0-124) Total Protein 6.6 g/dL (6.4-8.2) Albumin 3.9 g/dL (3.4-5.0) Albumin/Globulin Ratio 1.4 (1.0-1.7) Lipase 4920 U/L (73-393) Urine Collection Type Unknown Urine Color Yellow Urine Clarity Clear Urine pH 5.5 (<5.0-8.0) Urine Specific [place] >=1.030 (1.000-1.030) Urine Protein Negative mg/dL (NEG-TRACE) Urine Glucose (UA) Negative mg/dL (NEG) Urine Ketones (Stick) Negative mg/dL (NEG) Urine Blood Negative (NEG) Urine Nitrite Negative (NEG) Urine Bilirubin Small (NEG) Urine Urobilinogen Dipstick 1.0 mg/dL (0.2 mg/dL) Urine Leukocyte Esterase Negative (NEG) Urine RBC 0 /HPF (0-2) Urine WBC 0 /HPF (0-4) Urine Squamous Epithelial Cells Mod /LPF Urine Bacteria 0 /HPF (0-FEW) Urine Mucus Marked /LPF Triglycerides Level 78 mg/dL (0-150) Laboratory Tests Test 10/18/19 19:10 10/18/19 21:30 10/19/19 09:20 White Blood Count 11.5 x10^3/uL (4.0-11.0) Red Blood Count 4.61 x10^6/uL (4.30-5.70) Hemoglobin 14.2 g/dL (13.0-17.5) Hematocrit 41.5 % (39.0-53.0) Mean Corpuscular Volume 90 fL (79-100) Mean Corpuscular Hemoglobin 31 pg (25-35) Mean Corpuscular Hemoglobin Concent 34 g/dL (31-37) Red Cell Distribution Width 13.2 % (11.5-14.5) Platelet Count 280 x10^3/uL (140-400) Neutrophils (%) (Auto) 52 % (31-73) Lymphocytes (%) (Auto) 39 % (24-48) Monocytes (%) (Auto) 6 % (0-9) Eosinophils (%) (Auto) 2 % (0-3) Basophils (%) (Auto) 1 % (0-3) Neutrophils # (Auto) 6.0 x10^3/uL (1.8-7.7) Lymphocytes # (Auto) 4.5 x10^3/uL (1.0-4.8) Monocytes # (Auto) 0.7 x10^3/uL (0.0-1.1) Eosinophils # (Auto) 0.2 x10^3/uL (0.0-0.7) Basophils # (Auto) 0.1 x10^3/uL (0.0-0.2) Sodium Level 142 mmol/L (136-145) Potassium Level 4.0 mmol/L (3.5-5.1) Chloride Level 106 mmol/L (98-107) Carbon Dioxide Level 26 mmol/L (21-32) Anion Gap 10 (6-14) Blood Urea Nitrogen 17 mg/dL (8-26) Creatinine 0.7 mg/dL (0.7-1.3) Estimated GFR (Cockcroft-Gault) 131.5 BUN/Creatinine Ratio 24 (6-20) Glucose Level 105 mg/dL (70-99) Calcium Level 9.2 mg/dL (8.5-10.1) Total Bilirubin 0.4 mg/dL (0.2-1.0) Aspartate Amino Transf (AST/SGOT) 28 U/L (15-37) Alanine Aminotransferase (ALT/SGPT) 29 U/L (16-63) Alkaline Phosphatase 52 U/L (46-116) Troponin I Quantitative < 0.017 ng/mL (0.000-0.055) DB-Ozb-V-Type Natriuretic Peptide 123 pg/mL (0-124) Total Protein 6.6 g/dL (6.4-8.2) Albumin 3.9 g/dL (3.4-5.0) Albumin/Globulin Ratio 1.4 (1.0-1.7) Lipase 4920 U/L (73-393) Urine Collection Type Unknown Urine Color Yellow Urine Clarity Clear Urine pH 5.5 (<5.0-8.0) Urine Specific [place] >=1.030 (1.000-1.030) Urine Protein Negative mg/dL (NEG-TRACE) Urine Glucose (UA) Negative mg/dL (NEG) Urine Ketones (Stick) Negative mg/dL (NEG) Urine Blood Negative (NEG) Urine Nitrite Negative (NEG) Urine Bilirubin Small (NEG) Urine Urobilinogen Dipstick 1.0 mg/dL (0.2 mg/dL) Urine Leukocyte Esterase Negative (NEG) Urine RBC 0 /HPF (0-2) Urine WBC 0 /HPF (0-4) Urine Squamous Epithelial Cells Mod /LPF Urine Bacteria 0 /HPF (0-FEW) Urine Mucus Marked /LPF Triglycerides Level 78 mg/dL (0-150) Images Images ABDOMEN LTD INDICATION: Reason: PANCREATITIS / Spl. Instructions: / History: COMPARISON: CT 10/18/2019. TECHNIQUE: Limited transverse and longitudinal grayscale images of the right upper quadrant with color and pulsed doppler utilized as appropriate. FINDINGS: The liver demonstrates increased echogenicity without focal lesions. The liver measures 19.7 cm. The portal vein is patent with normal antegrade flow. Cholelithiasis. No wall thickening or pericholecystic fluid. Negative sonographic Trevino's sign. No intrahepatic or extrahepatic biliary dilatation. The common bile duct measures 0.4 cm. Tail of the pancreas is obscured. The visualized portions of the pancreas demonstrate normal echogenicity without focal lesions. The right kidney has normal echogenicity and measures 10.7 cm. No hydronephrosis, shadowing stones or suspicious masses seen. No ascites or fluid collections. The aorta and IVC are normal diameter where visualized. IMPRESSION: 1. Cholelithiasis. No evidence of acute cholecystitis. Normal caliber common bile duct. 2. Hepatomegaly and hepatic steatosis. Electronically signed by: Libby Godoy MD (10/19/2019 9:56 AM) [id number] DICTATED and SIGNED BY: LIBBY GODOY MD CT scan of the chest, abdomen and pelvis with contrast 10/18/2019 CLINICAL HISTORY: Chest and abdominal pain. TECHNIQUE: After the oral and intravenous administration of contrast, contiguous, 5 mm axial sections were obtained through the chest, abdomen and pelvis. 100 cc of Omnipaque 300 were administered intravenously during this examination. One or more of the following individualized dose reduction techniques were utilized for this study: 1. Automated exposure control. 2. Adjustment of the mA and/or kV according to patient size. 3. Use of iterative reconstruction technique. FINDINGS: Comparison is made to a portable chest radiograph performed earlier today. The heart is borderline enlarged. The thoracic aorta tapers normally. No hilar or mediastinal lymphadenopathy is noted. Minimal dependent subsegmental atelectasis is seen involving both lungs. No area of consolidation is seen. No pneumothorax or pleural effusion is noted. The liver parenchyma has a decreased attenuation consistent with fatty infiltration. The liver is mildly enlarged measuring 21 cm in length. The spleen is mildly enlarged measuring 13.3 cm in length. The pancreas, adrenal glands and kidneys are within normal limits. The abdominal aorta tapers normally. The gallbladder is well-distended. Air and stool are seen throughout the colon. There is no evidence of bowel obstruction. The appendix is well-visualized and is within normal limits. Postsurgical changes are seen involving the stomach. Images through the pelvis demonstrate the urinary bladder distended with urine. Moderate amount stool is seen within the rectum and sigmoid colon. No free fluid is seen. Minimal S-shaped curvature of the thoracolumbar spine is noted. Degenerative changes are seen involving the thoracic and mid and lower lumbar spine along with both hips. IMPRESSION: No acute abnormality is seen. Electronically signed by: Andrew Antoine MD (10/18/2019 9:30 PM) [id number] DICTATED and SIGNED BY: ANDREW ANTOINE MD DATE: 10/18/192129 VTE Prophylaxis Ordered VTE Prophylaxis Devices: No VTE Pharmacological Prophylaxi: Yes Assessment/Plan Assessment/Plan IMPRESSION ABDOMINAL PAIN Pancreatitis //no alcohol ABUSE HX pancreatitis possibly related to hypertriglyceridemia /// triglyceride and cholesterol levels Cholelithiasis. No evidence of acute cholecystitis. Normal caliber common bile duct. Hepatomegaly and hepatic steatosis. SUPERMORBID OBESITY POST BARIATRIC SURGERY [facility] 2019 plan ADMIT GI CONSULT NPO IV FLUID SUPPORT GEN SURGERY CONSULT Note surgery recs for f/u w/ bariatric surgeon re: cholecystectomy. FLP DVT PROPHYLAXIS D/W RN AND MOTHER IN ROOM Justicifation of Admission Dx: Justifications for Admission: Justification of Admission Dx: Yes Comments: INTRACTABLE VOMITING, PAIN SCOTTY MAI MD Oct 19, 2019 10:29
[2019-10-19 10:30] VITALS: BP 114/50
[2019-10-19] MEDS: IV NORMAL SALINE 1000ML BAG 1,000 ML IV SCH ×2 (10:30→23:05)
--- NOTE | 2019-10-19 12:01 | PDOC2 ---
GI CONSULT Reason For Consult: acute pancreatitis HPI: HPI: 29 y/o male admitted through ER. Acute onset of lower chest and epigastric pain w/ radiation to back yesterday afternoon. [place] like gas. Associated w/ sweating. Took Pepto-Bismol and came to ER. Tells me pain resolved before he was given any treatment here. Continues w/o pain. Denies reflux/heartburn, dysphagia, n/v, diarrhea, constipation, hematochezia, or melena. S/p gastric sleeve in 11/2018. Has lost 240-260 pounds. Eats 4-6 oz at a time - more than that and he feels food backing up in his throat. No previous colonoscopy. No GB, liver, pancreas, or PUD history. No NSAIDs. PMH: PMH: lymphedema, depression tonsillectomy, gastric sleeve FH: Family History: Other (mother - cholecystectomy after weight loss) Social History: Smoke: No ALCOHOL: rare (maybe 5 drinks a year) Drugs: None ROS: GEN: +sweats (resolved) HEENT: Denies blurred vision, sore throat CV: +chest pain (resolved) RESP: Denies shortness of air, cough GI: Per HPI : Denies hematuria, dysuria ENDO: +weight loss (gastric sleeve) NEURO: Denies confusion, dizziness MSK: +lymphedema +back pain (resolved) SKIN: Denies jaundice, pruritus Vitals: Vitals: Vital Signs Date Time Temp Pulse Resp B/P (MAP) Pulse Ox O2 Delivery O2 Flow Rate FiO2 10/19/19 10:30 97.8 51 18 114/50 (71) 96 Room Air 97.8 Labs: Labs: Laboratory Tests Test 10/18/19 19:10 10/18/19 21:30 10/19/19 09:20 White Blood Count 11.5 x10^3/uL (4.0-11.0) Red Blood Count 4.61 x10^6/uL (4.30-5.70) Hemoglobin 14.2 g/dL (13.0-17.5) Hematocrit 41.5 % (39.0-53.0) Mean Corpuscular Volume 90 fL (79-100) Mean Corpuscular Hemoglobin 31 pg (25-35) Mean Corpuscular Hemoglobin Concent 34 g/dL (31-37) Red Cell Distribution Width 13.2 % (11.5-14.5) Platelet Count 280 x10^3/uL (140-400) Neutrophils (%) (Auto) 52 % (31-73) Lymphocytes (%) (Auto) 39 % (24-48) Monocytes (%) (Auto) 6 % (0-9) Eosinophils (%) (Auto) 2 % (0-3) Basophils (%) (Auto) 1 % (0-3) Neutrophils # (Auto) 6.0 x10^3/uL (1.8-7.7) Lymphocytes # (Auto) 4.5 x10^3/uL (1.0-4.8) Monocytes # (Auto) 0.7 x10^3/uL (0.0-1.1) Eosinophils # (Auto) 0.2 x10^3/uL (0.0-0.7) Basophils # (Auto) 0.1 x10^3/uL (0.0-0.2) Sodium Level 142 mmol/L (136-145) Potassium Level 4.0 mmol/L (3.5-5.1) Chloride Level 106 mmol/L (98-107) Carbon Dioxide Level 26 mmol/L (21-32) Anion Gap 10 (6-14) Blood Urea Nitrogen 17 mg/dL (8-26) Creatinine 0.7 mg/dL (0.7-1.3) Estimated GFR (Cockcroft-Gault) 131.5 BUN/Creatinine Ratio 24 (6-20) Glucose Level 105 mg/dL (70-99) Calcium Level 9.2 mg/dL (8.5-10.1) Total Bilirubin 0.4 mg/dL (0.2-1.0) Aspartate Amino Transf (AST/SGOT) 28 U/L (15-37) Alanine Aminotransferase (ALT/SGPT) 29 U/L (16-63) Alkaline Phosphatase 52 U/L (46-116) Troponin I Quantitative < 0.017 ng/mL (0.000-0.055) TZ-[id number]-Type Natriuretic Peptide 123 pg/mL (0-124) Total Protein 6.6 g/dL (6.4-8.2) Albumin 3.9 g/dL (3.4-5.0) Albumin/Globulin Ratio 1.4 (1.0-1.7) Lipase 4920 U/L (73-393) Urine Collection Type Unknown Urine Color Yellow Urine Clarity Clear Urine pH 5.5 (<5.0-8.0) Urine Specific [place] >=1.030 (1.000-1.030) Urine Protein Negative mg/dL (NEG-TRACE) Urine Glucose (UA) Negative mg/dL (NEG) Urine Ketones (Stick) Negative mg/dL (NEG) Urine Blood Negative (NEG) Urine Nitrite Negative (NEG) Urine Bilirubin Small (NEG) Urine Urobilinogen Dipstick 1.0 mg/dL (0.2 mg/dL) Urine Leukocyte Esterase Negative (NEG) Urine RBC 0 /HPF (0-2) Urine WBC 0 /HPF (0-4) Urine Squamous Epithelial Cells Mod /LPF Urine Bacteria 0 /HPF (0-FEW) Urine Mucus Marked /LPF Triglycerides Level 78 mg/dL (0-150) Allergies: Coded Allergies: latex (Verified Allergy, Intermediate, 10/19/19) Medications: Current Medications Medications (Trade) Dose Ordered Sig/Justina Route PRN Reason Start Time Stop Time Status Last Admin Dose Admin Famotidine (Pepcid Vial) 20 mg 1X ONCE IVP 10/18/19 19:15 10/18/19 19:35 DC 10/18/19 19:15 Iohexol (Omnipaque 300 Mg/ml) 75 ml 1X ONCE IV 10/18/19 20:30 10/18/19 20:31 DC 10/18/19 20:30 Iohexol (Omnipaque 240 Mg/ml) 30 ml 1X ONCE PO 10/18/19 20:30 10/18/19 20:31 DC 10/18/19 20:52 Sodium Chloride 1,000 ml @ 75 mls/hr [id number] IV 10/19/19 10:15 10/19/19 10:30 Imaging: Imaging: CXR IMPRESSION: No acute pulmonary finding. C/A/P CT IMPRESSION: No acute abnormality is seen. Abd US IMPRESSION: 1. Cholelithiasis. No evidence of acute cholecystitis. Normal caliber common bile duct. 2. Hepatomegaly and hepatic steatosis. PE: GEN: NAD HEENT: Atraumatic, PERRL LUNGS: CTAB HEART: RR distant ABD: quiet BS, S/NT, obese EXTREMITY: BLE lymphedema SKIN: No rashes, no jaundice NEURO/PSYCH: A & O 3 A/P: A/P: Pancreatitis - lipase elevated w/ normal pancreas on CT, cholelithiasis noted on US, normal triglycerides S/p gastric sleeve - has lost ~250 pounds since 11/2018, BMI 59.7 CRC screen - average risk -- Pain resolved. Okay to try clears. Note surgery recs for f/u w/ bariatric surgeon re: cholecystectomy. He'd like to be home by Father's Day - DC per primary when reliably eating. NILE MELENDREZ Oct 19, 2019 12:01
[2019-10-19 14:49] VITALS: BP 124/38
[2019-10-19 19:00] VITALS: BP 123/55
[2019-10-19 23:01] VITALS: BP 116/52
[2019-10-20 04:17] VITALS: BP 129/66
[2019-10-20 07:26] VITALS: BP 106/45
[2019-10-20 07:32] LABS: BASO % 1 % (0-3); EOS # 0.2 x10^3/uL (0.0-0.7); EOS % 3 % (0-3); HEMATOCRIT 37.9 % (39.0-53.0); HEMOGLOBIN 12.7 g/dL (13.0-17.5); LYMPH # 2.7 x10^3/uL (1.0-4.8); LYMPH % 36 % (24-48); MEAN CORPUSCULAR HEMOGLOBIN 30 pg (25-35); MEAN CORPUSCULAR HGB CONC 33 g/dL (31-37); MEAN CORPUSCULAR VOLUME 90 fL (79-100); MONO # 0.5 x10^3/uL (0.0-1.1); MONO % 6 % (0-9); NEUT # 3.9 x10^3/uL (1.8-7.7); NEUT % 53 % (31-73); PLATELET COUNT 225 x10^3/uL (140-400); RED BLOOD COUNT 4.19 x10^6/uL (4.30-5.70); WHITE BLOOD COUNT 7.3 x10^3/uL (4.0-11.0)
[2019-10-20 07:55] LABS: ALBUMIN 3.2 g/dL (3.4-5.0); ALBUMIN/GLOBULIN RATIO 1.2 (1.0-1.7); CALCIUM 8.1 mg/dL (8.5-10.1); CREATININE 0.7 mg/dL (0.7-1.3); GFR 131.5; POTASSIUM 3.8 mmol/L (3.5-5.1); TOTAL BILIRUBIN 0.5 mg/dL (0.2-1.0); TOTAL PROTEIN 5.9 g/dL (6.4-8.2)
[2019-10-20 10:40] VITALS: BP 124/45
--- NOTE | 2019-10-20 10:56 | PDOC ---
SURGICAL PROGRESS NOTE Subjective feels great tolerating liquids Vital Signs Vital Signs Date Time Temp Pulse Resp B/P (MAP) Pulse Ox O2 Delivery O2 Flow Rate FiO2 10/20/19 10:40 97.7 50 18 124/45 (71) 99 Room Air 97.7 I&O Intake and Output 10/20/19 07:00 Intake Total 1967 ml Balance 1967 ml Intake Oral 600 ml IV Total 1367 ml # Voids 5 PATIENT HAS A LANGLEY: No General: Alert, Oriented X3, No acute distress Labs Laboratory Tests Test 10/18/19 19:10 10/18/19 21:30 10/19/19 09:20 10/20/19 05:40 White Blood Count 11.5 x10^3/uL (4.0-11.0) 7.3 x10^3/uL (4.0-11.0) Red Blood Count 4.61 x10^6/uL (4.30-5.70) 4.19 x10^6/uL (4.30-5.70) Hemoglobin 14.2 g/dL (13.0-17.5) 12.7 g/dL (13.0-17.5) Hematocrit 41.5 % (39.0-53.0) 37.9 % (39.0-53.0) Mean Corpuscular Volume 90 fL (79-100) 90 fL (79-100) Mean Corpuscular Hemoglobin 31 pg (25-35) 30 pg (25-35) Mean Corpuscular Hemoglobin Concent 34 g/dL (31-37) 33 g/dL (31-37) Red Cell Distribution Width 13.2 % (11.5-14.5) 13.0 % (11.5-14.5) Platelet Count 280 x10^3/uL (140-400) 225 x10^3/uL (140-400) Neutrophils (%) (Auto) 52 % (31-73) 53 % (31-73) Lymphocytes (%) (Auto) 39 % (24-48) 36 % (24-48) Monocytes (%) (Auto) 6 % (0-9) 6 % (0-9) Eosinophils (%) (Auto) 2 % (0-3) 3 % (0-3) Basophils (%) (Auto) 1 % (0-3) 1 % (0-3) Neutrophils # (Auto) 6.0 x10^3/uL (1.8-7.7) 3.9 x10^3/uL (1.8-7.7) Lymphocytes # (Auto) 4.5 x10^3/uL (1.0-4.8) 2.7 x10^3/uL (1.0-4.8) Monocytes # (Auto) 0.7 x10^3/uL (0.0-1.1) 0.5 x10^3/uL (0.0-1.1) Eosinophils # (Auto) 0.2 x10^3/uL (0.0-0.7) 0.2 x10^3/uL (0.0-0.7) Basophils # (Auto) 0.1 x10^3/uL (0.0-0.2) 0.0 x10^3/uL (0.0-0.2) Sodium Level 142 mmol/L (136-145) 142 mmol/L (136-145) Potassium Level 4.0 mmol/L (3.5-5.1) 3.8 mmol/L (3.5-5.1) Chloride Level 106 mmol/L (98-107) 107 mmol/L (98-107) Carbon Dioxide Level 26 mmol/L (21-32) 26 mmol/L (21-32) Anion Gap 10 (6-14) 9 (6-14) Blood Urea Nitrogen 17 mg/dL (8-26) 13 mg/dL (8-26) Creatinine 0.7 mg/dL (0.7-1.3) 0.7 mg/dL (0.7-1.3) Estimated GFR (Cockcroft-Gault) 131.5 131.5 BUN/Creatinine Ratio 24 (6-20) 19 (6-20) Glucose Level 105 mg/dL (70-99) 79 mg/dL (70-99) Calcium Level 9.2 mg/dL (8.5-10.1) 8.1 mg/dL (8.5-10.1) Total Bilirubin 0.4 mg/dL (0.2-1.0) 0.5 mg/dL (0.2-1.0) Aspartate Amino Transf (AST/SGOT) 28 U/L (15-37) 17 U/L (15-37) Alanine Aminotransferase (ALT/SGPT) 29 U/L (16-63) 29 U/L (16-63) Alkaline Phosphatase 52 U/L (46-116) 46 U/L (46-116) Troponin I Quantitative < 0.017 ng/mL (0.000-0.055) ZW-Gox-X-Type Natriuretic Peptide 123 pg/mL (0-124) Total Protein 6.6 g/dL (6.4-8.2) 5.9 g/dL (6.4-8.2) Albumin 3.9 g/dL (3.4-5.0) 3.2 g/dL (3.4-5.0) Albumin/Globulin Ratio 1.4 (1.0-1.7) 1.2 (1.0-1.7) Lipase 4920 U/L (73-393) 324 U/L (73-393) Urine Collection Type Unknown Urine Color Yellow Urine Clarity Clear Urine pH 5.5 (<5.0-8.0) Urine Specific [place] >=1.030 (1.000-1.030) Urine Protein Negative mg/dL (NEG-TRACE) Urine Glucose (UA) Negative mg/dL (NEG) Urine Ketones (Stick) Negative mg/dL (NEG) Urine Blood Negative (NEG) Urine Nitrite Negative (NEG) Urine Bilirubin Small (NEG) Urine Urobilinogen Dipstick 1.0 mg/dL (0.2 mg/dL) Urine Leukocyte Esterase Negative (NEG) Urine RBC 0 /HPF (0-2) Urine WBC 0 /HPF (0-4) Urine Squamous Epithelial Cells Mod /LPF Urine Bacteria 0 /HPF (0-FEW) Urine Mucus Marked /LPF Triglycerides Level 78 mg/dL (0-150) Laboratory Tests Test 10/20/19 05:40 White Blood Count 7.3 x10^3/uL (4.0-11.0) Red Blood Count 4.19 x10^6/uL (4.30-5.70) Hemoglobin 12.7 g/dL (13.0-17.5) Hematocrit 37.9 % (39.0-53.0) Mean Corpuscular Volume 90 fL (79-100) Mean Corpuscular Hemoglobin 30 pg (25-35) Mean Corpuscular Hemoglobin Concent 33 g/dL (31-37) Red Cell Distribution Width 13.0 % (11.5-14.5) Platelet Count 225 x10^3/uL (140-400) Neutrophils (%) (Auto) 53 % (31-73) Lymphocytes (%) (Auto) 36 % (24-48) Monocytes (%) (Auto) 6 % (0-9) Eosinophils (%) (Auto) 3 % (0-3) Basophils (%) (Auto) 1 % (0-3) Neutrophils # (Auto) 3.9 x10^3/uL (1.8-7.7) Lymphocytes # (Auto) 2.7 x10^3/uL (1.0-4.8) Monocytes # (Auto) 0.5 x10^3/uL (0.0-1.1) Eosinophils # (Auto) 0.2 x10^3/uL (0.0-0.7) Basophils # (Auto) 0.0 x10^3/uL (0.0-0.2) Sodium Level 142 mmol/L (136-145) Potassium Level 3.8 mmol/L (3.5-5.1) Chloride Level 107 mmol/L (98-107) Carbon Dioxide Level 26 mmol/L (21-32) Anion Gap 9 (6-14) Blood Urea Nitrogen 13 mg/dL (8-26) Creatinine 0.7 mg/dL (0.7-1.3) Estimated GFR (Cockcroft-Gault) 131.5 BUN/Creatinine Ratio 19 (6-20) Glucose Level 79 mg/dL (70-99) Calcium Level 8.1 mg/dL (8.5-10.1) Total Bilirubin 0.5 mg/dL (0.2-1.0) Aspartate Amino Transf (AST/SGOT) 17 U/L (15-37) Alanine Aminotransferase (ALT/SGPT) 29 U/L (16-63) Alkaline Phosphatase 46 U/L (46-116) Total Protein 5.9 g/dL (6.4-8.2) Albumin 3.2 g/dL (3.4-5.0) Albumin/Globulin Ratio 1.2 (1.0-1.7) Lipase 324 U/L (73-393) Problem List Problems Medical Problems: (1) Pancreatitis Status: Acute Assessment/Plan gallstone pancreatitis following 250# wt loss after bariatric procedure OK to dismiss for f/u with Dr Schwartz Justicifation of Admission Dx: Justifications for Admission: Justification of Admission Dx: Yes MARIBEL COLINDRES MD Oct 20, 2019 10:56
[2019-10-20] MEDS ORDERED: FUROSEMIDE 40 MG TABLET. PO SCH ×2 (11:15→11:30)
[2019-10-20] MEDS ORDERED: LEVOTHYROXINE 25 MCG TABLET. PO SCH (11:30)
[2019-10-20] MEDS ORDERED: POTASSIUM CHLORIDE 20 MEQ TABLET.ER. PO SCH (11:30)
[2019-10-20] MEDS ORDERED: SERTRALINE 50 MG TABLET. PO SCH (11:30)
--- NOTE | 2019-10-20 13:15 | NUR ---
Discharge Note: PT DISCHARGED HOME WITH SELF CARE. PT LEFT FACILITY VIA PRIVATE VEHICLE WITH PARENTS AT 1245. PT STABLE AND ALERT UPON DISCHARGE. PT PIV REMOVED FROM R AC WITHOUT COMPLICATIONS, BANDAGE APPLIED. PT EDUCATED ABOUT DISCHARGE INSTRUCTIONS, DISCHARGE MEDICATIONS, AND FOLLOW-UP INSTRUCTIONS. PT VOICED NO CONCERNS AT THIS TIME. PT LEFT WITH ALL PERSONAL BELONGINGS AND MEDICATIONS RETURNED FROM PHARMACY. SILVESTRE MARK Discharge instructions and discharge home medications reviewed with Patient and a copy given. All questions have been answered and understanding verbalized.
--- NOTE | 2019-10-20 16:00 | DS ---
DATE OF DISCHARGE: 10/20/2019 ADMISSION DIAGNOSIS: Gallstone pancreatitis. DISCHARGE DIAGNOSIS: Resolving gallstone pancreatitis. HOSPITAL COURSE: The patient is a pleasant, middle-aged male who used to weigh 600 pounds. He is down to 400 now. Basically, he presented with gallstone pancreatitis. We admitted him. We gave him pain meds and fluids and consulted Dr. Baker. Today, I saw and examined the patient. He is at his baseline. We plan to discharge with close outpatient followup. DISPOSITION: Home. ACTIVITY: As tolerated. DIET: Low sodium. MEDICATIONS: Please see MRAD. TOTAL TIME: 32 minutes. RAIZAL Brenden HAND DO DR: DAVON/mitul JOB#: [id number] / [id number]
== END 2019-10-20 12:45 | disposition home or self-care (01) | DRG 439 ==
LOC: ER 18:56 → 4 NORTH 22:49
PROVIDERS: ADMIT Internal Medicine; ATTEND Internal Medicine
DX: K85.10 Biliary acute pancreatitis without necrosis or infection (principal); Z68.43 Body mass index [BMI] 50.0-59.9, adult; E03.9 Hypothyroidism, unspecified; E11.9 Type 2 diabetes mellitus without complications; E66.01 Morbid (severe) obesity due to excess calories; F17.210 Nicotine dependence, cigarettes, uncomplicated; F32.9 Major depressive disorder, single episode, unspecified; I10 Essential (primary) hypertension; I89.0 Lymphedema, not elsewhere classified; K76.0 Fatty (change of) liver, not elsewhere classified; K80.20 Calculus of gallbladder without cholecystitis without obstruction; Z82.49 Family history of ischemic heart disease and other diseases of the circulatory system; Z82.5 Family history of asthma and other chronic lower respiratory diseases; Z98.84 Bariatric surgery status; Z90.49 Acquired absence of other specified parts of digestive tract
CPT/HCPCS: 36415; 71045; 71260; 74177; 76705; 80053; 81001; 83690; 83880; 84478; 84484; 85025; 93005; 96374; 99285; J3490; J7030; Q9966; Q9967; G0378